=== PATIENT | female | born 1995 | race Caucasian/White ===

== ENCOUNTER 2023-10-17 12:38 | Emergency (ER) | payer BC ==
[~2023-10-17] VITALS: Ht 170.2 cm; Wt 59.0 kg
[2023-10-17 14:46] LABS: BASOPHILS # (AUTO) 0.1 K/UL (0.0-0.2); BASOPHILS % (AUTO) 0.4 % (0.0-2.0); EOSINOPHILS % (AUTO) 0.2 % (0.0-7.0); HEMOGLOBIN 13.9 g/dL (10.9-14.3); LYMPHOCYTES # (AUTO) 2.4 K/uL (0.8-4.8); LYMPHOCYTES % (AUTO) 16.2 % (20.5-51.5); MEAN CORPUSCULAR HEMOGLOBIN 32.9 uug (24.7-32.8); MEAN CORPUSCULAR HGB CONC 33 g/dL (32.3-35.6); MEAN CORPUSCULAR VOLUME 99.4 fL (75.5-95.3); MONOCYTES # (AUTO) 0.7 K/uL (0.1-1.30); MONOCYTES % (AUTO) 4.8 % (0.0-11.0); NEUTROPHILS # (AUTO) 11.6 K/uL (1.8-8.9); NEUTROPHILS % (AUTO) 78.4 % (38.5-71.5); PLATELET COUNT (AUTO) 343 K/uL (179-408); RED BLOOD CELL COUNT(AUTO) 4.22 MIL/uL (3.63-4.92); RED CELL DISTRIBUTION WIDTH 12.6 % (12.3-17.7); WHITE BLOOD COUNT (AUTO) 14.9 K/uL (3.8-11.8)
[2023-10-17 14:52] LABS: CALCIUM 9.3 mg/dL (8.5-10.1); CREATININE 0.9 mg/dL (0.6-1.3); POTASSIUM 3.7 mmol/L (3.5-5.1)
[2023-10-17 14:57] LABS: ERYTHROCYTE SEDIMENTATION RATE 36 MM/HR (0-20)
[2023-10-17 15:53] LABS: *URINE HCG, QUAL NEGATIVE (NEGATIVE)
[2023-10-17] MEDS ORDERED: LEVO750T46 PO (16:43)
[2023-10-17] MEDS ORDERED: ACET1TAB23 PO (16:43)
[2023-10-17 16:58] VITALS: BP 118/59; O2SAT 99
== END 2023-10-17 16:59 | disposition home or self-care (01) ==
LOC: ER 12:42
DX: K52.9 Noninfective gastroenteritis and colitis, unspecified (principal); D72.0 Genetic anomalies of leukocytes; R10.2 Pelvic and perineal pain; Z79.899 Other long term (current) drug therapy
CPT/HCPCS: 36415; 74018; 84703; 85025; 85651; A4606; A4663